=== PATIENT | male | born 1935 | race Caucasian/White ===

== ENCOUNTER → 2019-03-20 | Outpatient (CLI) | payer MEDICARE ==
[~2019-03-20] MED LIST: ASPI325 PO; Acetaminophen1 EAC2 PO; CHOL10002 PO; LEVSOD100 PO; METO50ER PO; Nitrostat0.4 MG SL; Prinivil10 MG PO; Super B Comple150 MG PO; TAMS.4ER PO; XARELTO20 MG PO
== END | disposition home or self-care (01) ==
LOC: LAB EV 10:59 → LAB SHORT 10:59
DX: L08.9 Local infection of the skin and subcutaneous tissue, unspecified (principal)
CPT/HCPCS: 87070; 87075; 87077; 87147; 87186; 87205

== ENCOUNTER → 2019-06-09 | Outpatient (CLI) | payer MEDICARE | END | disposition home or self-care (01) | LOC: LAB 19:09 → LAB SHORT 19:09 | DX: L08.89 Other specified local infections of the skin and subcutaneous tissue (principal) | CPT/HCPCS: 87070; 87077; 87147; 87205 ==

== ENCOUNTER 2019-06-23 00:34 | Day surgery (SDC) | payer MEDICARE | END 2019-06-23 23:12 | disposition home or self-care (01) | LOC: WOUND 00:34 | DX: L97.522 Non-pressure chronic ulcer of other part of left foot with fat layer exposed (principal); L98.9 Disorder of the skin and subcutaneous tissue, unspecified; H54.8 Legal blindness, as defined in USA; N18.1 Chronic kidney disease, stage 1; E78.5 Hyperlipidemia, unspecified; E03.9 Hypothyroidism, unspecified; Z88.8 Allergy status to other drugs, medicaments and biological substances; Z79.899 Other long term (current) drug therapy | CPT/HCPCS: G0463 ==

== ENCOUNTER 2019-06-30 00:26 | Day surgery (SDC) | payer MEDICARE | END 2019-06-30 22:40 | disposition home or self-care (01) | LOC: WOUND 00:26 | DX: L97.522 Non-pressure chronic ulcer of other part of left foot with fat layer exposed (principal); L98.9 Disorder of the skin and subcutaneous tissue, unspecified; H54.8 Legal blindness, as defined in USA; N18.1 Chronic kidney disease, stage 1; E78.5 Hyperlipidemia, unspecified; E03.9 Hypothyroidism, unspecified; Z79.899 Other long term (current) drug therapy ==